=== PATIENT | female | born 1945 | race Caucasian/White ===

== ENCOUNTER 2017-02-10 13:40 | Emergency (ER) | payer MEDICARE ==
[2017-02-18] MEDS ORDERED: LOP25 PO (13:57)
[2017-02-18] MEDS ORDERED: NORV25 PO (13:57)
[2017-02-18] MEDS ORDERED: VITC500 PO (13:59)
[2017-02-18] MEDS ORDERED: VITAMIN D31000 UNIT PO (13:59)
[2017-02-18] MEDS ORDERED: ASAB PO (14:00)
[2017-02-18] MEDS ORDERED: VITE PO (14:00)
[2017-02-18] MEDS ORDERED: BONE HEALTH PO (14:01)
[2017-02-18] MEDS ORDERED: BIOTIN5 MG PO (14:01)
[2017-02-18] MEDS ORDERED: CALCIUM PO (14:01)
[2017-02-18] MEDS ORDERED: ZYRTEC ALLGY10 MG PO (14:02)
[2017-02-18] MEDS ORDERED: PRAVASTATIN (14:03)
[2017-02-18] MEDS ORDERED: NORCO1 TA2 PO (15:40)
== END 2017-02-10 13:52 | disposition home or self-care (01) ==
LOC: ER 13:40
PROC: 2W3QX1Z Immobilization of Right Lower Leg using Splint (ICD-10-PCS; principal; 2017-02-10)
DX: S82.831D Other fracture of upper and lower end of right fibula, subsequent encounter for closed fracture with routine healing (principal); I10 Essential (primary) hypertension; Z88.2 Allergy status to sulfonamides; Z88.1 Allergy status to other antibiotic agents
CPT/HCPCS: 73560-RT; 73590-RT; 99284

== ENCOUNTER 2017-02-19 12:00 | Observation (INO) | payer MEDICARE ==
[2017-02-15 17:58] LABS: HEMATOCRIT 36.5 % (36.0-48.0); HEMOGLOBIN 12.5 g/dL (12.0-16.0)
[2017-02-15 18:14] LABS: BUN (BLOOD UREA NITROGEN) 24 MG/DL (6-23); CALCIUM, SERUM 8.9 MG/DL (8.5-10.4); CHLORIDE, SERUM 106 MMOL/L (96-112); CO2 (CARBON DIOXIDE) 26 MMOL/L (24-34); CREATININE 0.99 MG/DL (0.55-1.02); GFR AFRICAN AMERICAN 66 ML/MIN (>=60); GFR NON AFRICAN AMERICAN 57 ML/MIN (>=60); GLUCOSE, SERUM 86 MG/DL (60-99); SODIUM, SERUM 142 MMOL/L (135-148)
--- NOTE | ~2017-02-19 | OP ---
Record Of Operation [facility] [address] [place]. [address] NAME: CECILY TIAN : 41 STATUS : ADM Antonette PAT#: [id number] AGE: 71 ADM/REG DATE : 02/19/17 MR#: [id number] REPORT SERV DATE: 02/19/17 DICTATED BY: NAHOMI MOORE DATE: 02/19/17 REPORT STATUS : Draft TRANSCRIBED BY: MODL DATE: 02/19/17 DATE OF PROCEDURE: 02/19/2017 PREOPERATIVE DIAGNOSIS: Displaced bimalleolar right ankle fracture. POSTOPERATIVE DIAGNOSIS: Displaced bimalleolar right ankle fracture. PROCEDURE: Open reduction and internal fixation of bimalleolar ankle fracture with Mccool locking plate lateral and two 0.054 K-wires medial. SURGEON: Nahomi Moore M.D. ADVERTISING STATISTICAL CLERK: Ivelisse Pérez. ANESTHESIA: General anesthetic. ESTIMATED BLOOD LOSS: 100 mL. FLUIDS: 1100 mL of crystalloid. TOURNIQUET TIME: Zero. DRAINS: None. COMPLICATIONS: None. INDICATION: A 71-year-old patient presented to the office after a fall with twisting injury and been seen in the emergency department with radiographs indicating a bimalleolar right ankle fracture. She was apprised of diagnosis and recommended treatment for operative fixation. She understood the possible risks and complications and agreed to proceed. DESCRIPTION OF PROCEDURE: She was identified in the preop holding area. Her operative extremity was marked with yes. The patient was taken to the operative suite and placed in supine position on the operating table. General anesthetic was successfully administered. The patient's right lower extremity was then prepped and draped to expose the leg circumferentially. A time-out was called. She was identified, a correct operative extremity identified, verification of antibiotic Ancef administration. A longitudinal incision was placed over the lateral malleolus through the skin and subcutaneous tissues. Hemostasis was achieved with electrocautery. Fracture was identified, opened, and cleansed from the fracture hematoma and then reduced with the bone reduction clamp. Intraoperative fluoroscopy was used to ascertain the reduction, was deemed appropriate. A single anterior to posterior interfrag screw was placed with a near cortex 3.5 mm drill and a far cortex 2.5 mm and appropriate screw was placed. A blunt clamp was removed. Fracture was noted to be stable. A lateral locking plate was then placed from the Mccool set with three proximal cortical screws and then four distal locking screws. Again, fluoroscopy was used to assure the position and adequacy of the lateral plate, which was deemed appropriate. Attention was Record Of Operation [facility] [address] [place]. [address] NAME: CECILY TIAN : 41 STATUS : ADM Antonette PAT#: [id number] AGE: 71 ADM/REG DATE : 02/19/17 MR#: [id number] REPORT SERV DATE: 02/19/17 DICTATED BY: NAHOMI MOORE DATE: 02/19/17 REPORT STATUS : Draft TRANSCRIBED BY: MODRadha DATE: 02/19/17 then turned to the medial fracture at the medial malleolus where a longitudinal incision was then placed over the skin and subcutaneous tissues. Hemostasis was achieved with electrocautery. Fracture was identified, opened, cleansed from soft tissue and then reduced, held in place, and K-wires were placed. Attempted drilling was done with a screw placed, which showed the fragment to be displaced. Screw was removed as were the K-wires. Fracture was then re-reduced and held in place with two 0.054 K-wires. Checked under fluoroscopy and noted to be adequate. The K-wires were then bent and then tapped in further into the soft tissues. Again, fluoroscopy was used to assure the adequacy of the reduction, which was deemed appropriate. Each of the incisions were then washed with irrigation fluid, anesthetized with 0.5% Marcaine with epinephrine, and then closure was performed on the lateral side with 0 Vicryl deep suture, 2-0 Vicryl suture subcutaneous suture, and a 3-0 nylon running suture. Medially, the incision was closed using 2-0 Vicryl suture and then a 3-0 nylon interrupted suture. Each of the incision was covered with Xeroform gauze, sterile dry gauze, sterile cast padding, and an AO splint was placed to hold in place with bias roll and tape. Final reduction and post splinting radiograph was done under AP projection, which deemed appropriate. The patient was then awakened, extubated, transferred to [facility], and taken to postanesthesia care unit in satisfactory condition having tolerated the procedure well. Sponge and needle counts were correct at the conclusion of the procedure. EC/MODL Nahomi Moore M.D. / [id number] CC: Taras Calles D.O. F.A.C.P.
[~2017-02-19 12:00] MED LIST: ASAB PO; BIOTIN5 MG PO; BONE HEALTH PO; CALCIUM PO; LOP25 PO; NORCO1 TA2 PO; NORV25 PO; PRAVASTATIN; VITAMIN D31000 UNIT PO; VITC500 PO; VITE PO; ZYRTEC ALLGY10 MG PO
[2017-02-20] MEDS ORDERED: DIL4TAB PO (08:38)
== END 2017-02-20 10:58 | disposition home or self-care (01) ==
LOC: SDC 12:00 → 3SO 19:55
PROVIDERS: Orthopaedic Surgery
PROC: 0QSJ04Z Reposition Right Fibula with Internal Fixation Device, Open Approach (ICD-10-PCS; 2017-02-19)
PROC: 0QSG04Z Reposition Right Tibia with Internal Fixation Device, Open Approach (ICD-10-PCS; principal; 2017-02-19 13:45)
DX: S82.841A Displaced bimalleolar fracture of right lower leg, initial encounter for closed fracture (principal); I10 Essential (primary) hypertension; I25.2 Old myocardial infarction; I25.10 Atherosclerotic heart disease of native coronary artery without angina pectoris; E78.00 Pure hypercholesterolemia, unspecified; G47.33 Obstructive sleep apnea (adult) (pediatric); D64.9 Anemia, unspecified; M19.90 Unspecified osteoarthritis, unspecified site; Z85.3 Personal history of malignant neoplasm of breast; Z88.2 Allergy status to sulfonamides; Z88.5 Allergy status to narcotic agent; Z88.1 Allergy status to other antibiotic agents; Z79.899 Other long term (current) drug therapy; Z79.82 Long term (current) use of aspirin; Z79.891 Long term (current) use of opiate analgesic; Z98.890 Other specified postprocedural states
CPT/HCPCS: 27814; G0378; 76000; 80048; 85014; 85018; 93005; 96374; 96375; 96376; A9270-GY; C1713; C1769; J0690; J1170; J2175; J2250; J2405; J2710; J3010